=== PATIENT | male | born 1940 | race Caucasian/White ===

== ENCOUNTER 2017-02-07 14:02 | Emergency (ER) | payer OTHER ==
--- NOTE | 2017-02-07 15:39 | DIAGNOSTIC IMAGING REPORT ---
PROCEDURE: CT HEAD WITHOUT CONTRAST INDICATION: VERTIGO/DIZZINESS TECHNIQUE: Axial CT images were acquired through the head. Coronal and sagittal reformations were created. COMPARISON: None. FINDINGS: Moderate cerebral and cerebellar cortical atrophy. Moderate to marked scattered patchy hypodensity in the periventricular and subcortical white matter. A few small right caudate head lacunar infarcts and deep white matter tract locations bilaterally. No intracranial hemorrhage or extraaxial fluid collections. Ventricles are normal in the size for the degree of atrophy, normal shape and position. There is no mass, mass effect or midline shift. The cade-white matter differentiation is normal. There is no edema. Mild calcific atherosclerosis of the intracranial internal carotid arteries. Small right frontal soft tissue contusion without underlying foreign body or fracture. The paranasal sinuses and mastoid air cells are normally aerated. IMPRESSION: 1. No CT evidence of acute intracranial process. 2. Age related involutional changes and moderate to marked white matter changes of microvascular ischemic disease. 3. Findings discussed with Dr. Beckford at [address] scans at this facility use dose modulation, iterative reconstruction, and/or weight-based dosing when appropriate to reduce radiation dose to as low as reasonably achievable.
--- NOTE | 2017-02-07 15:40 | DIAGNOSTIC IMAGING REPORT ---
PROCEDURE: XR HIP 2VW W W/O AP PELVIS-RT INDICATION: TRAUMA/INJURY TECHNIQUE: AP view of the pelvis and hips with lateral view of the right hip. COMPARISON: None. FINDINGS: RIGHT HIP: Normal mineralization. No fracture. Normal bony alignment. Mild degenerative change at the hip joint including superior acetabular sclerosis and spurring. No unusual adjacent calcifications. PELVIS: Normal mineralization. Pelvic rings are intact. No fractures. Normal alignment. Mild degenerative change at the left hip joint. Moderate endplate sclerosis and disc height loss in the visible lower lumbar spine. The visible bowel gas pattern and pelvic soft tissues appear normal. IMPRESSION: 1. Intact right hip. 2. Mild bilateral degeneration in the hip joints and moderate disc endplate degeneration in the lumbar spine.
--- NOTE | 2017-02-07 19:00 | ED NURSING NOTES ---
Clinical Report - Nurses [facility] [place] [address] 02/07/2017 14:03 Patient: ELIZABETH LEAL JR TRIAGE Triage time 14:00 Feb 07 2017. Acuity: LEVEL 3. Chief Complaint: INJURY TO RIGHT KNEE. INJURY TO THE RIGHT HIP. Alert. JEANE COMA SCORE: Jeane Coma Scale: 15- eyes open spontaneously (4); best verbal response- oriented x 4 (5); best motor response- obeys commands (6). --14:31 Edgar Turcios R.N. 14:06 02/07/17. BP: 148/96. HR: 76. RR: 16. O2 saturation: 97% on room air. Temp: 98.4 F. Pain level now: 10. Additional comments: (R) Hip pain. --14:31 Edgar Turcios R.N. Weight: 86.1 kg stated. Height/Length: 72 inches Per Patient. BMI: 25.8. --14:06 Edgar Turcios R.N. Medications Aspirin Oral (Tablet Chewable 81 mg) 1 tablet, daily. Atenolol Oral uncerain, daily. Atorvastatin Calcium Oral. Losartan Potassium Oral. Triamterene-HCTZ Oral. --14:19 Edgar Turcios R.N. Medication/allergy information source: the patient. --14:31 Edgar Turcios R.N. Allergies No Known Drug Allergy. --14:19 Edgar Turcios R.N. History Arrived by EMS. Historian: patient. Accompanied by family. Primary physician (Dmitriy Jimenez [facility]). ( GLF yesterday with (R) Hip, (R) Knee Pain, and Bump to the (R) Forehead. Pt is having pain in the (R) Hip today while ambulating. The cause of his fall might have been due to dizzines and he also had trouble standing afterward. Denies LOC). This occurred yesterday. Occurred at home. Mechanism of injury: fell. He has had trouble walking. Treatment DIRECTOR ORACLE: None. PAST MEDICAL HX: Hypertension. Heart disease. Tetanus status: unknown. Immunizations: up-to-date and seasonal influenza: first dose. SOCIAL HX: Smoker- current status unknown. Alcohol use. (rarely has a cocktail). No drug use. No infectious disease exposure. ABUSE ASSESSMENT: No report of abuse. FALL RISK ASSESSMENT: Fall risk assessment completed. No fall risk identified. NUTRITIONAL RISK ASSESSMENT: The nutritional risk assessment revealed no deficiencies. FUNCTIONAL ASSESSMENT: Functional assessment: no impairments noted. LEARNING NEEDS ASSESSMENT: The learning needs assessment revealed no barriers. SKIN INTEGRITY ASSESSMENT: Skin integrity risk assessment completed. No skin integrity risk identified. --14:31 Edgar Turcios R.N. PROBLEMS: CAD. Rib Fracture. Hyperlipidemia. CVA - Cerebrovascular Accident. --14:17 Edgar Turcios R.N. ADDITIONAL SURGERIES: Appendectomy. CABG. Tonsillectomy. --14:17 Edgar Turcios R.N. Interventions ID band on patient. To treatment room. --14:31 Edgar Turcios R.N. PHYSICAL ASSESSMENT To room via stretcher. GENERAL / NEURO / PSYCH: Oriented X 4. Alert. EXTREMITIES: Limited ROM present in the right hip. Capillary refill is less than 2 seconds in the extremities. Extremity pulses are within normal limits. Pain with weight bearing. Right hip. Right knee. SKIN: Skin intact. Skin is warm and dry. --14:32 Edgar Turcios R.N. NURSING PROGRESS NOTES Patient gowned. Reassurance given to the patient. Patient identifiers checked. Call light placed in reach. Side rails up x 2. Bed placed in lowest position. Brakes of bed on. Patient ready for evaluation- chart flagged and ED physician notified. --14:33 Edgar Turcios R.N. 14:24 02/07/2017 Site #1 started via IV in the left antecubital space with an 20g angiocath, with aseptic technique and good blood return; one attempt. Blood drawn: rainbow set. Labeled in the presence of the patient and sent to the lab. Saline lock flushed with 10 mL saline. --14:34 Edgar Turcios R.N. 14:35 02/07/2017 Started bag #1 1000 mL IV Fluids IV NS (Saline); bolus of 250 mL over 15 minute(s) then at 250 mL/hr over 3 hour(s) via site #1 via IV pump. Allergies verified and confirmed 5 rights. IV patency established. IV site checked: no pain, redness, or swelling. IV flushed thoroughly pre- and post-medication administration. --14:35 Edgar Turcios R.N. 14:40 02/07/17. Patient transported to radiology and CT by stretcher with tech. --14:44 Edgar Turcios R.N. 14:40 02/07/2017 Acetaminophen (APAP) PO Tablets 1000 mg given. Allergies verified and confirmed 5 rights. --14:45 Edgar Turcios R.N. 15:07 02/07/17. Patient returned from radiology and CT by stretcher with tech. --15:09 Edgar Turcios R.N. 15:20. Patient ID band checked for patient name and birthdate: patient confirmed. Clean catch urine collected with return of yellow-colored clear urine; sample sent to lab for urinalysis and culture. Specimen labeled in the presence of the patient (pt voided approx 70cc urine into urinal in bed. UA sent to lab). --15:28 Lakisha Rowan R.N. EKG time: (1531). EKG was ordered, performed by a tech and shown to the ED physician. --15:33 Ricardo Martinez, ER Tech1 15:40 02/07/2017 Potassium Chloride (Potassium Chloride ER) PO Tablets 20 meq given. Allergies verified and confirmed 5 rights. --15:45 Edgar Turcios R.N. 16:15. ( Attempted to ambulate with patient in the pavon. Patient was able to stand at his bedside with assistance, and took a few small steps while using the IV pole for support. The patient appeared somewhat unstable.). --16:59 Ricardo Martinez, ER Tech1 18:10 02/07/2017 Hydrocodone-APAP (Hydrocodone-Acetaminophen) PO 5/325 mg Tablets 1 tab given. Allergies verified, confirmed 5 rights and sedative warning given to the patient. --18:25 Edgar Turcios R.N. 18:10 02/07/2017 Zofran (Ondansetron HCl) IVP 4 mg given over 2 minute(s) via site #1. Allergies verified and confirmed 5 rights. IV patency established. IV site checked: no pain, redness, or swelling. IV flushed thoroughly pre- and post-medication administration. IVP given by RN. --18:25 Edgar Turcios R.N. ( Patient attempted to ambulate with a walker, with assistance. He ambulated about 8 feet, then his "leg gave out" and he had to go down to his knees. It took two caregivers to get the patient back in to a wheelchair.). --18:32 Ricardo aMrtinez, ER Tech1 19:00 02/07/2017 IV Fluids IV NS Discontinued: bag #1 infused. Total amount infused: 1000 mL. IV patency established. IV site checked: no pain, redness, or swelling. IV flushed thoroughly. --19:42 Edgar Turcios R.N. 19:10 02/07/2017 Site #1 removed upon discharge. Catheter intact. Manual pressure and bandaid applied. --19:43 Edgar Turcios R.N. DISPOSITION / DISCHARGE Departure time: 1914. --19:38 Edgar Turcios R.N. 19:15 02/07/17. BP: 171/91. HR: 74. RR: 16. O2 saturation: 97%. Temp: 98.7 F (oral). Pain level now: 210. Additional comments: RLE pain. --19:39 Edgar Turcios R.N. 19:15. Condition at departure: improved. No learning barriers present. Discharge instructions provided and reviewed with the patient and family. Reviewed medication(s) (prescription given to daughter). Reviewed referral to family practice. Patient and family verbalized understanding. Written instructions provided in Faroese. The patient was discharged by the physician. He was discharged home and accompanied by family and daughter. He left the Emergency Department in a wheelchair and via private vehicle. Family member driving (daughter). --19:41 Edgar Turcios R.N. Locked/Released at 02/07/2017 19:43 by Edgar Turcios R.N.
--- NOTE | 2017-02-07 19:00 | ED CLINICAL REPORT ---
Clinical Report - Physicians/Mid Levels [facility] [address] [place] [address] 02/07/2017 14:03 Patient: ELIZABETH LEAL JR Time Seen: 14:09. Arrived- By ambulance. Historian- patient and EMS personnel. HISTORY OF PRESENT ILLNESS Chief Complaint: FALL. Location of injuries- head and right hip and right knee. Patient denies injury to neck. The injury occurred about 2 days ago. Fell and landed on the ground; became dizzy. Occurred at home. ( GLF yesterday with (R) Hip, (R) Knee Pain, and Bump to the (R) Forehead. Pt is having pain in the (R) Hip today while ambulating). The patient complains of moderate pain. The patient sustained a blow to the head. No neck pain, loss of consciousness or seizure. Not dazed. REVIEW OF SYSTEMS The patient complains of pain on weight bearing. No numbness, dizziness, chest pain, difficulty breathing or headache. No nausea, abdominal pain, laceration, fever or vomiting. He has had pre-existing constant weakness of the right leg (moderate), (pt has longstanding right lower extremity weakness from prior stroke - he walks with a cane and notes occasional exacerbations of this weakness. He states that there is nothing new or different today with this weakness). All systems otherwise negative, except as recorded above. PAST HISTORY Hypertension. Primary physician (Dmitriy Jimenez [facility] Problems: Prior falls (GLF's) Hyperlipidemia. CVA - Cerebrovascular Accident (chronic rt side weakness, uses a cane). Prior right rib fracture Surgeries: Appendectomy CABG. Tonsillectomy. No history of diabetes mellitus. Medications: Aspirin Oral (Tablet Chewable 81 mg) 1 tablet, daily. Atenolol Oral uncerain, daily. Atorvastatin Calcium Oral. Losartan Potassium Oral. Triamterene-HCTZ Oral. Allergies: No Known Drug Allergy. SOCIAL HISTORY Occasional alcohol use. No drug use. Is a local resident. ADDITIONAL NOTES The nursing notes have been reviewed. PHYSICAL EXAM Vital Signs: 02/07/2017 14:06 BP: 148/96. HR: 76. RR: 16. O2 saturation: 97%. Temp: 98.4 F. Pain level now: 01/25. Appearance: Alert. Oriented X3. Patient in mild distress. Head: No Dotson's sign or raccoon eyes. Forehead: moderate tenderness, mild swelling and small ecchymosis of the upper right side of the forehead. No laceration, puncture wound, foreign body or deformity. Eyes: EOM intact. ENT: No dental injury. Pharynx normal. Neck: Painless ROM. Non-tender. CVS: Pulses normal. Respiratory: Breath sounds normal. Chest nontender. Abdomen: No visible injury. Soft and nontender. No mass. Back: No tenderness. ROM normal. Skin: Skin warm and dry. Normal skin color. Normal skin turgor. (forehead abrasion). Extremities: Normal inspection. Pelvis stable. Pelvis. Neurovascular intact distally. No tenderness. No swelling. No ecchymosis. Right hip: mild tenderness located in the lateral aspect of the hip. Neurovascular intact distally. No erythema, swelling, laceration, abrasion or ecchymosis. No puncture wound, foreign body or deformity. No limitation in ROM. The right leg is not shortened, externally rotated, internally rotated, flexed or adducted. The right leg is not abducted. Right knee. No tenderness or swelling. Neuro: [place] Coma Scale: 15- eyes open spontaneously (4); best verbal response- oriented x 3 (5); best motor response- obeys commands (6). Oriented X 3. No motor deficit. No sensory deficit. LABS, X-RAYS, AND EKG EKG: EKG time: (15:31). Narrow-complex bradycardia (ventricular rate 50). Sinus bradycardia. Normal P waves. Normal QRS complex. Normal axis. Non-specific ST segment / T wave abnormalities. The study has been interpreted contemporaneously by me. The EKG appears to be a good tracing. Rt Hip X-ray: No fracture. Normal alignment. No bony lesion or air in the soft tissue. Soft tissues normal. Joint spaces normal. Views: 2 view hip series. Technique: good. The X-rays were interpreted contemporaneously by me. The X-rays were discussed with the radiologist (Dr Payton telephonically). CT Head: White matter disease is present. No acute changes. No bony abnormalities, no hemorrhage, no intracranial mass and no midline shift. There is atrophy is present. Head CT performed without contrast. The study was independently viewed by me, interpreted by the radiologist and discussed with the radiologist. Laboratory Tests: UA-Culture if indicated: (MAXX: 02/07/2017 15:18) ( [facility] 02/07/2017 15:54) Final results Test Result Flag Units (Reference) URINE COLOR YELLOW URINE APPEARANCE CLEAR URINE GLUCOSE NEGATIVE (NEGATIVE) URINE BILIRUBIN NEGATIVE (NEGATIVE) URINE KETONE 1+ (NEGATIVE) URINE SPECIFIC GRAVITY 1.020 (1.010-1.030) URINE PH 7.0 (5.0-8.0) URINE PROTEIN 1+ (NEGATIVE) URINE UROBILINOGEN 0.2 EU/dL (0.2-1.0) URINE NITRITE NEGATIVE (NEGATIVE) URINE BLOOD 3+ (NEGATIVE) URINE LEUK ESTERASE NEGATIVE (NEGATIVE) URINE RBC 0-1 rbc/hpf (0-1) URINE WBC 0-1 wbc/hpf (0-1) URINE EPITHELIAL CELLS RARE EPI/hpf (0-5) URINE BACTERIA TRACE (<1+) (NONE SEEN) URINE COMMENT CULT NOT INDICATED URINE CULTURES ARE SET-UP BASED ON THE FOLLOWING CRITERIA:POSITIVE NITRITEPOSITIVE LEUKOCYTE ESTERASEGREATER THAN 10 WHITE BLOOD CELLSMODERATE (2+) OR GREATER BACTERIA CBC w Diff: (MAXX: 02/07/2017 14:25) ( [facility] 02/07/2017 14:48) Final results Test Result Flag Units (Reference) WHITE BLOOD COUNT 10.1 K/uL (4.5-11.5) RED BLOOD COUNT 5.15 M/uL (4.50-5.90) HEMOGLOBIN 15.1 gm/dL (13.5-17.5) HEMATOCRIT 44.1 % (41.0-53.0) MEAN CELL VOLUME 86 fL (80-100) MEAN CORPUSCULAR HGB 29 pg (26-34) MEAN CORPUSCULAR HGB CONC 34 g/dL (31-37) RED CELL DISTRIBUTION WIDTH 14.6 % (11.6-14.8) PLATELET COUNT 202 K/uL (150-400) NEUTROPHIL % 82.3 H % (50-75) LYMPH % 10.8 L % (25-40) MONO % 6.3 % (3-14) EOSINOPHIL % 0.3 % (0-4) BASOPHIL % 0.3 % (0-2) PT with INR: (MAXX: 02/07/2017 14:25) ( [facility] 02/07/2017 14:53) Final results Test Result Flag Units (Reference) INR 1.0 (0.8-1.2) Low Intensity Therapy: INR 1.5-2.0 PT range 18.5-23.1Mod.Intensity Therapy: INR 2.0-3.0 PT range 23.1-31.5High Intensity Therapy: INR 2.5-3.5 PT range 27.4-35.5High Intensity Therapy 2: INR 3.0-4.0 PT range 31.5-39.3 APTT 29 SECONDS (24-34) BNP: (MAXX: 02/07/2017 14:25) ( [facility] 02/07/2017 15:11) Final results Test Result Flag Units (Reference) B-TYPE NATRIURETIC PEPTIDE 269 H pg/ml (5-100) CHEM 13 PANEL: (MAXX: 02/07/2017 14:25) ( [facility] 02/07/2017 16:00) IP Test Result Flag Units (Reference) GLUCOSE 108 mg/dL (70-110) BUN 20 H mg/dL (7-18) CREATININE 1.3 mg/dL (0.6-1.3) Estimated GFR 56.60 mL/min Estimated GFR- >60 mL/min Note: Persistent reduction over 3 months in eGFR<60 mL/min/1.73 m2 defines CKD. Patients with eGFR values>=60 mL/min/1.73 m2 may also have CKD if evidence ofpersistent proteinuria. Additional information may be foundat www.kidney.org. SODIUM 146 H mmol/L (136-145) POTASSIUM 3.0 L mmol/L (3.5-5.1) CHLORIDE 106 mmol/L (98-107) CARBON DIOXIDE 29 mmol/L (21-32) CALCIUM 9.6 mg/dL (8.5-10.1) TOTAL PROTEIN 7.2 g/dL (6.4-8.2) ALBUMIN 4.4 g/dL (3.3-5.0) BILIRUBIN, TOTAL 1.7 H mg/dL (0.0-1.0) ALKALINE PHOSPHATASE 93 U/L (46-116) AST (SGOT) 59 H U/L (15-37) ALT (SGPT) 28 U/L (12-78) MAGNESIUM 2.0 mg/dL (1.8-2.4) TROPONIN I 0.13 ng/mL (0.00-1.5) TROPONIN REFERENCE RANGE:<0.1 NEGATIVE0.1-1.5 INDETERMINANT>1.5 POSITIVE CPK 2051 H U/L (24-260) . Pulse Oximetry: 02/07/2017 14:06 O2 saturation: 97%. (FIO2 - room air). Interpretation: normal. PROGRESS AND PROCEDURES Course of Care: Acetaminophen 1000 mg PO given. Hydrocodone/APAP 5 mg PO given. Normal Saline 500 mL IVPB given. Potassium Chloride 20 meq PO given. Zofran 4 mg IVP given. Pt with chronic right lower extremity weakness for which he uses a cane and now with superimposed, intermittent vertigo (CT neg for acute process, but may need MRI in the future if not improving - current symptoms are >24 hours, no vertigo now). Pt ambulated with assistance in the ED with minimal pain, but later stated the hip began hurting again. No fracture on x-ray (but if not improving, may need repeat x-ray, MRI, CT or bone scan to reassess). 18:22 02/07/17. Pt just ambulated with walker in the ED - mild pain in "foot and ankle". Was able to walk down pavon then he reports he had increased weakness in the RLE and went to his knees upon entering his room - no injury - he required assistance to move to the bed 19:20 02/07/17. We have helped arrange [facility] transport tomorrow for his doctor's appointment After long discussion with patient and daughter about possible dispositions, pt and daughter would like to go home and obtain a wheelchair and attempt to place pt into assisted living tomorrow (now in wheelchair accessible half-way, but without assistance). No sings of acute CVA, but, per patient symptoms began about 48 hours ago - no TPA indications or other indication for admission. Discussed treatment options including adding Plavix, but, with his history of frequent falls in the past, the risks of serious bleeding may outweigh the benefits. I will increase ASA to 325mg po qd. Patient and family counseled in person regarding the patient's test results, diagnosis and need for additional testing and follow-up. Old ED records reviewed. Disposition: Discharged. Condition: stable and improved. CLINICAL IMPRESSION Acute vertigo of unknown cause. Single contusion with abrasion to the forehead and right hip. Hypokalemia; hyponatremia; abnormal serum liver function test. Essential hypertension. Hypokalemia Fall. Prior CVA (possible exacerbation in same distribution) with chronic right lower extremity weakness and prior falls. INSTRUCTIONS Apply ice. (Please only use a wheelchair and ambulate only with a walker and ambulate (walk) only with assistance). Warnings: GENERAL WARNINGS: Return or contact your physician immediately if your condition worsens or changes unexpectedly, if not improving as expected, or if other problems arise. Your Current Medications: CONTINUE TAKING THE FOLLOWING MEDICATIONS: Aspirin Oral : Tablet Chewable 81 mg, 1 tablet daily. Atenolol Oral : uncerain daily. Atorvastatin Calcium Oral. Losartan Potassium Oral. Triamterene-HCTZ Oral. Prescription Medications: Meclizine 25 mg: Take 1 tablet orally every 8 hours as needed for dizziness. Dispense thirty (30). No refills. OTC Medications: Aspirin 325 mg (available over the counter): take 1 orally every 24 hours. Dispense thirty (30). No refills. Follow-up: Follow up with your doctor tomorrow. Screening today revealed the patient's blood pressure to be in the hypertensive range. The patient should follow up with a primary care provider for blood pressure management. (Electronically signed by Ricardo Beckford DO 02/07/2017 20:32)
--- NOTE | 2017-02-07 19:00 | ED ORDER SUMMARY ---
..... Patient: ELIZABETH LEAL JR OrderSheet [facility] VisitID: [id number] [address] [place] [address] 77y, M Registration Date/Time: 02/07/2017 ORDER SHEET Weight: 86.1 kg (stated) Allergies: No Known Drug Allergy GENERAL ORDERS: CT Head wo Cont (noted vertigo, fell struck head, "taking thinners") Urgent (14:28 02/07/2017 PHutchinson DO) (Ack 14:32 PWeiler ER Tech1) (15:09 Ari) Adoption Counselor (Continuous) (14:02/07/2017 PHutchinson DO) (14:45 JRomanelli R.N.) UA-Culture if indicated Urgent (14:02/07/2017 PHutchinson DO) (Ack 14:32 PWeiler ER Tech1) (15:27 DDean R.N.) Cardiac Panel Stat (14:02/07/2017 PHutchinson DO) (Ack 14:32 PWeiler ER Tech1) (14:39 DDean R.N.) BNP Urgent (14:02/07/2017 PHutchinson DO) (Ack 14:32 PWeiler ER Tech1) (14:39 DDean R.N.) PT with INR Urgent (14:02/07/2017 PHutchinson DO) (Ack 14:32 PWeiler ER Tech1) (14:39 DDean R.N.) PTT Urgent (14:02/07/2017 PHutchinson DO) (Ack 14:32 PWeiler ER Tech1) (14:39 DDean R.N.) Vitals (14:02/07/2017 PHutchinson DO) (14:45 JRomanelli R.N.) Pulse oximeter (14:02/07/2017 PHutchinson DO) (14:45 JRomanelli R.N.) Hip 2V Right w AP Pelvis Urgent (14:31 02/07/2017 PHutchinson DO) (Ack 14:32 PWeiler ER Tech1) (15:09 Ari) Old Records (old ECG please) (15:23 02/07/2017 [facility]) (Ack 15:44 PWeiler ER Tech1) (15:46 PWeiler ER Tech1) EKG - ER Stat (15:23 02/07/2017 [facility]) (15:33 Joelli R.N.) (15:33 PWeiler ER Tech1) - (attempt to ambulate patient) (15:51 02/07/2017 [facility]) (Ack 16:12 PWeiler ER Tech1) (16:57 PWeiler ER Tech1) MEDICATION ORDERS: Acetaminophen PO 1,000 mg (NOW) (14:29 02/07/2017 [facility]) (14:45 Hardy R.N.) Potassium Chloride PO 20 meq (NOW) (15:25 02/07/2017 [facility]) (15:45 Hardy R.N.) Hydrocodone-APAP PO 5/325 mg (NOW, HIGH ALERT MEDICATION) (17:21 02/07/2017 [facility]) (18:25 Hardy R.N.) IV FLUIDS: IV NS : initial bolus 250 mL (1000 mL/hr), then 250 mL/hr for X2 (NOW) (14:29 02/07/2017 [facility]) (14:35 Hardy R.N.) Zofran IV 4 mg (NOW) (17:22 02/07/2017 [facility]) (18:25 Hardy R.N.) ORDER SHEET NOTES: [Electronically signed by Edgar Turcios R.N. (19:43 02/07/2017)] [Electronically signed by Ricardo Beckford DO (20:32 02/07/2017)] [Electronically locked/signed by Edgar Turcios R.N. (19:43 02/07/2017)]
--- NOTE | 2017-02-07 19:00 | ED ORDER SUMMARY ---
..... Patient: ELIZABETH LEAL JR OrderSheet [facility] VisitID: [id number] [address] [place] [address] 77y, M Registration Date/Time: 02/07/2017 ORDER SHEET Weight: 86.1 kg (stated) Allergies: No Known Drug Allergy GENERAL ORDERS: CT Head wo Cont (noted vertigo, fell struck head, "taking thinners") Urgent (14:28 02/07/2017 PHutchinson DO) (Ack 14:32 PWeiler ER Tech1) (15:09 Ari) Bug Trimmer (Continuous) (14:02/07/2017 PHutchinson DO) (14:45 JRomanelli R.N.) UA-Culture if indicated Urgent (14:02/07/2017 PHutchinson DO) (Ack 14:32 PWeiler ER Tech1) (15:27 DDean R.N.) Cardiac Panel Stat (14:02/07/2017 PHutchinson DO) (Ack 14:32 PWeiler ER Tech1) (14:39 DDean R.N.) BNP Urgent (14:02/07/2017 PHutchinson DO) (Ack 14:32 PWeiler ER Tech1) (14:39 DDean R.N.) PT with INR Urgent (14:02/07/2017 PHutchinson DO) (Ack 14:32 PWeiler ER Tech1) (14:39 DDean R.N.) PTT Urgent (14:02/07/2017 PHutchinson DO) (Ack 14:32 PWeiler ER Tech1) (14:39 DDean R.N.) Vitals (14:02/07/2017 PHutchinson DO) (14:45 JRomanelli R.N.) Pulse oximeter (14:02/07/2017 PHutchinson DO) (14:45 JRomanelli R.N.) Hip 2V Right w AP Pelvis Urgent (14:31 02/07/2017 PHutchinson DO) (Ack 14:32 PWeiler ER Tech1) (15:09 Ari) Old Records (old ECG please) (15:23 02/07/2017 [facility]) (Ack 15:44 PWeiler ER Tech1) (15:46 PWeiler ER Tech1) EKG - ER Stat (15:23 02/07/2017 [facility]) (15:33 Joelli R.N.) (15:33 PWeiler ER Tech1) - (attempt to ambulate patient) (15:51 02/07/2017 [facility]) (Ack 16:12 PWeiler ER Tech1) (16:57 PWeiler ER Tech1) MEDICATION ORDERS: Acetaminophen PO 1,000 mg (NOW) (14:29 02/07/2017 [facility]) (14:45 Hardy R.N.) Potassium Chloride PO 20 meq (NOW) (15:25 02/07/2017 [facility]) (15:45 Hardy R.N.) Hydrocodone-APAP PO 5/325 mg (NOW, HIGH ALERT MEDICATION) (17:21 02/07/2017 [facility]) (18:25 Hardy R.N.) IV FLUIDS: IV NS : initial bolus 250 mL (1000 mL/hr), then 250 mL/hr for X2 (NOW) (14:29 02/07/2017 [facility]) (14:35 Hardy R.N.) Zofran IV 4 mg (NOW) (17:22 02/07/2017 [facility]) (18:25 Hardy R.N.) ORDER SHEET NOTES: [Electronically signed by Edgar Turcios R.N. (19:43 02/07/2017)] [Electronically signed by Ricardo Beckford DO (20:32 02/07/2017)] [Electronically locked/signed by Edgar Turcios R.N. (19:43 02/07/2017)]
--- NOTE | 2017-02-07 20:32 | ED DISCHARGE INSTRUCTIONS ---
Patient: ELIZABETH LEAL JR General Instructions [facility] VisitID: [id number] [place] [address] 77y, M Registration Date/Time: 02/07/2017 Acute vertigo of unknown cause. Single contusion with abrasion to the forehead and right hip. Hypokalemia; hyponatremia; abnormal serum liver function test. Essential hypertension. Hypokalemia Fall. INSTRUCTIONS Apply ice. (Please only use a wheelchair and ambulate only with a walker and ambulate (walk) only with assistance). Warnings: GENERAL WARNINGS: Return or contact your physician immediately if your condition worsens or changes unexpectedly, if not improving as expected, or if other problems arise. Your Current Medications: CONTINUE TAKING THE FOLLOWING MEDICATIONS: Aspirin Oral : Tablet Chewable 81 mg, 1 tablet daily. Atenolol Oral : uncerain daily. Atorvastatin Calcium Oral. Losartan Potassium Oral. Triamterene-HCTZ Oral. Prescription Medications: Meclizine 25 mg: Take 1 tablet orally every 8 hours as needed for dizziness. Dispense thirty (30). No refills. OTC Medications: Aspirin 325 mg (available over the counter): take 1 orally every 24 hours. Dispense thirty (30). No refills. Follow-up: Follow up with your doctor tomorrow. Screening today revealed the patient's blood pressure to be in the hypertensive range. The patient should follow up with a primary care provider for blood pressure management. ADDITIONAL INFORMATION Facial Contusion (No Wake-Up) A facial contusion is a bruise with swelling and sometimes bleeding under the skin. The swelling should start to go down within two days. Although there may be no signs of a serious injury at this time, symptoms may appear later which could be a sign of a more serious problem. Therefore, watch for the warning signs below. Home care The following guidelines will help you care for your injury at home: If you have swelling of the face, apply an ice pack (ice cubes in a plastic bag, wrapped in a towel) for 20 minutes every 12 hours until the swelling starts to go down. If you have scrapes or cuts on your face, clean them daily with soap and water. Apply an antibiotic ointment or cream for the first few days to prevent infection. You may use acetaminophen or ibuprofen to control pain, unless another pain medicine was prescribed.If you have chronic liver or kidney disease or ever had a stomach ulcer or GI bleeding, talk with your doctor before using these medicines. Do not use ibuprofen in children under six months of age. For the next 24 hours: Do not take alcohol, sedatives or medicines that make you sleepy. Do not drive or operate machinery. Avoid strenuous activities. No lifting or straining. If you have had any symptoms of aconcussiontoday (nausea, vomiting, dizziness, confusion, headache, memory loss or if you were knocked out), do not return to sports or any activity that could result in another head injury until all symptoms are gone and you have been cleared by your doctor. A second head injury before fully recovering from the first one can lead to serious brain injury. Follow-up care Follow up with your doctor in one week or as directed. Note: Any X-rays or CT scans taken will be reviewed by a radiologist. You will be notified of any new findings that may affect your care. When to seek medical care Get prompt medical attention if any of the following occur: Repeated vomiting Severe or worsening headache or dizziness Unusual drowsiness, or unable to awaken as usual Confusion or change in behavior or speech, memory loss, blurred vision Convulsion (seizure) Increasing scalp or face swelling Redness, warmth or pus from the swollen area Fluid drainage or bleeding from the nose or ears Fever of 100.4F (38C) or higher, or as directed by your health care provider Increasing jaw pain with chewing or increasing pain in the sinuses Nose looks crooked or cannot breathe through your nose after swelling goes down Hip Contusion You have a contusion of the hip. This is a bruise with swelling and some bleeding under the skin. There are no fracture (broken bone) seen on the x-ray. This injury takes a few days to a few weeks to heal. Home Care If walking causes pain, use crutches or a walker until you can walk without pain. These items can be rented at most pharmacies and orthopedic supply stores. Apply an ice pack (ice cubes in a plastic bag, wrapped in a towel) over the injured area for 20 minutes every 1-2 hours the firstday. You should continue with ice packs 3-4 times a day for the next two days. Continue the use of ice packs for relief of pain and swelling as needed. You may use acetaminophen (Tylenol) or ibuprofen (Motrin, Advil) to control pain, unless another pain medicine was prescribed. [NOTE: If you have chronic liver or kidney disease or ever had a stomach ulcer or GI bleeding, talk with your doctor before using these medicines.] If you are not able to get to the bathroom easily or take care of your meal preparation, home health care may be available to provide in-home nursing services. Check with your doctor, the hospital's social service department or through private nursing agencies to see if your insurance will cover this kind of care. Follow Up Follow up with your doctor or as advised by our staff if your symptoms do not begin to improve after one week. A repeat x-ray or a CT-scan may be needed to check again for a fracture. [NOTE: If X-rays were taken, they will be reviewed by a radiologist. You will be notified of any new findings that may affect your care.] Get Prompt Medical Attention Get prompt medical attention if any of the following occur: Increased swelling or increased bruising Pain becomes worse Decreased ability to bear weight on the injured side Swelling or pain below your knee Chest pain or shortness of breath High Blood Pressure --Established High Blood Pressure (Hypertension) is a chronic disease. The cause is unknown in most cases. It can usually be controlled with lifestyle changes and/or medicines. Symptoms of high blood pressure may include headache, dizziness, visual changes, chest pain and shortness of breath. Sometimes it causes no symptoms at all. However, even if there are no symptoms, untreated high blood pressure increases the risk of heart attack, also known as acute myocardial infarction, or AMI, and stroke. It is a serious health risk and should not be ignored. A normal blood pressure is 120/80 or less. The first (top) number is the "systolic" pressure. The second (bottom) number is the "diastolic" pressure. Hypertension exists when either the top number is 140 or higher, OR the bottom number is 90 or higher on repeated measurements. Home Care: All patients with high blood pressure should do the following to lower their pressure. If you are on medicines, then these methods may reduce or eliminate your need for medicines in the future. Begin a weight loss program if you are overweight. Reduce your salt intake. Avoid high salt foods (olives, pickles, smoked meats, salted potato chips, etc.). Do not add salt to your food at the table. Use only small amounts of salt when cooking. Begin an exercise program. Discuss with your doctor what type of exercise program would be best for you. It doesn't have to be difficult. Even brisk walking for 20 minutes three times a week is a good form of exercise. Avoid medicines which contain heart stimulants. This includes many cold and sinus decongestant pills and sprays as well as diet pills. Check the warnings about hypertension on the label. Stimulants such as amphetamine or cocaine could be lethal for someone with hypertension. Never take these. Limit your caffeine intake or switch to caffeine-free products. Stop smoking. If you are a long-time smoker, this can be hard. Enroll in a stop-smoking program to improve your chance of success. Learning how to handle stress better is an important part of any program to lower blood pressure. Learn about relaxation methods such as meditation, yoga or biofeedback. If medicines were prescribed, take them exactly as directed. Missing doses may cause your blood pressure get out of control. Consider buying an automatic blood pressure machine (available at most pharmacies). Use this to monitor your blood pressure at home and report the results to your doctor. Follow Up: Regular visits to your own physician for blood pressure checks and medicine adjustment is an important part of your care. Make a follow-up appointment as directed by our staff. Get Prompt Medical Attention if any of the following occur: Chest pain or shortness of breath Severe headache Throbbing or rushing sound in the ears Nosebleed Sudden severe abdominal pain Extreme drowsiness, confusion or fainting Dizziness or vertigo (dizziness with spinning sensation) Weakness of an arm or leg or one side of the face Difficulty with speech or vision Hypokalemia Hypokalemia means a low level of potassium in the blood. This most often occurs in patients who take diuretics (water pills). It can also occur due to severe vomiting or diarrhea. A mild case usually causes no symptoms. It is only found with blood testing. More severe potassium loss causes generalized weakness, muscle or abdominal cramping, heart palpitations (rapid or irregular heartbeats) and low blood pressure. Home Care: 1) Take any potassium supplements prescribed. 2) Eat foods rich in potassium. The highest amount is found in artichoke, baked potatoes, spinach, cantaloupe, honeydew melon, cod, halibut, salmon, and scallops. White, red, or sanchez beans are also very good sources. A modest amount is found in orange juice, bananas, carrots, and tomato juice. 3) Certain types of diuretics (water pills), such as Lasix (furosemide), require that you take potassium supplements for as long as you take the diuretic pills. If you are taking a diuretic, discuss the need for potassium supplements with your doctor. Follow Up with your doctor for a repeat blood test within the next week or as advised by our staff. Get Prompt Medical Attention if any of the following occur: -- Increased weakness -- Feeling dizzy -- Irregular heartbeat, extra beats or very fast heart rate -- Fainting spell Vertigo [Unknown Cause] The "inner ear" is located behind the middle ear. It is part of the balance center of your body. Disease of the inner ear causes vertigo -- a false feeling of motion. It feels as if you or the room is spinning. A vertigo attack may cause sudden nausea, vomiting and heavy sweating. Severe vertigo causes a loss of balance and can cause you to fall. During vertigo, small head movements and changes in body position will often make the symptoms worse. The causes of vertigo include: Inflammation of the inner ear Disease of the nerves to the inner ear Movement of calcium particles in the inner ear Poor blood flow to the balance centers of the brain An episode of vertigo may last seconds, minutes or hours. Once you are over the first episode, it may never return. However, sometimes symptoms may recur off and on over several weeks or longer, depending on the cause. There may be ringing in the ears or hearing loss, which may be temporary or permanent. Home Care: If symptoms are severe, rest quietly in bed. Change positions very slowly. There is usually one position that will feel best, such as lying on one side or lying on your back with your head slightly raised on pillows. Do not drive or work with dangerous machinery for one week after symptoms go away, in case the symptoms suddenly return. Take medicine as prescribed to relieve your symptoms. Unless another medicine was prescribed for nausea, vomiting and vertigo, you may use [id number] motion sickness pills, such as meclizine (Bonine, Bonamine, Antivert) or dimenhydrinate (Dramamine). Follow Up with your doctor or as directed by our staff. Tell the doctor if your ears keep ringing, or if your hearing does not return to normal. Get Prompt Medical Attention if any of the following occur: Vertigo gets worse and is not controlled by medicine prescribed Repeated vomiting not relieved by medicine prescribed Increased weakness or fainting Severe headache or unusually drowsy or confused Weakness of an arm or leg or one side of the face Difficulty with speech or vision Meclizine Hydrochloride Oral tablet What is this medicine? MECLIZINE (MEK rc stephens) is an antihistamine. It is used to prevent nausea, vomiting, or dizziness caused by motion sickness. It is also used to prevent and treat vertigo (extreme dizziness or a feeling that you or your surroundings are tilting or spinning around). How should I use this medicine? Take this medicine by mouth with a glass of water. Follow the directions on the prescription label. If you are using this medicine to prevent motion sickness, take the dose at least 1 hour before travel. If it upsets your stomach, take it with food or milk. Take your doses at regular intervals. Do not take your medicine more often than directed. Talk to your moth proofer regarding the use of this medicine in children. Special care may be needed. What side effects may I notice from receiving this medicine? Side effects that you should report to your doctor or health patient care specialist as soon as possible: fainting spells fast or irregular heartbeat Side effects that usually do not require medical attention (report to your doctor or health patient care specialist if they continue or are bothersome): constipation difficulty passing urine difficulty sleeping headache stomach upset What may interact with this medicine? barbiturate medicines for inducing sleep or treating seizures digoxin medicines for anxiety or sleeping problems, like alprazolam, diazepam or temazepam medicines for hay fever and other allergies medicines for mental depression medicines for movement abnormalities as in Parkinson's disease, or for stomach problems medicines for pain medicines that relax muscles What if I miss a dose? If you miss a dose, take it as soon as you can. If it is almost time for your next dose, take only that dose. Do not take double or extra doses. Where should I keep my medicine? Keep out of the reach of children. Store at room temperature between 15 and 30 degrees C (59 and 86 degrees F). Keep container tightly closed. Throw away any unused medicine after the expiration date. What should I tell my health care provider before I take this medicine? They need to know if you have any of these conditions: asthma glaucoma prostate trouble stomach problems urinary problems an unusual or allergic reaction to meclizine, other medicines, foods, dyes, or preservatives or trying to get breast-feeding What should I watch for while using this medicine? If you are taking this medicine on a regular schedule, visit your doctor or health patient care specialist for regular checks on your progress. You may get dizzy, drowsy or have blurred vision. Do not drive, use machinery, or do anything that needs mental alertness until you know how this medicine affects you. Do not stand or sit up quickly, especially if you are an older patient. This reduces the risk of dizzy or fainting spells. Alcohol can increase possible dizziness. Avoid alcoholic drinks. Your mouth may get dry. Chewing sugarless gum or sucking hard candy, and drinking plenty of water may help. Contact your doctor if the problem does not go away or is severe. This medicine may cause dry eyes and blurred vision. If you wear contact lenses you may feel some discomfort. Lubricating drops may help. See your eye doctor if the problem does not go away or is severe. Aspirin Oral tablet What is this medicine? ASPIRIN ( pir in) is a pain reliever. It is used to treat mild pain and fever. This medicine is also used as directed by a doctor to prevent and to treat heart attacks, to prevent strokes, and to treat arthritis or inflammation. How should I use this medicine? Take this medicine by mouth with a glass of water. Follow the directions on the package or prescription label. You can take this medicine with or without food. If it upsets your stomach, take it with food. Do not take your medicine more often than directed. Talk to your moth proofer regarding the use of this medicine in children. While this drug may be prescribed for children as young as 12 years of age for selected conditions, precautions do apply. Children and teenagers should not use this medicine to treat chicken pox or flu symptoms unless directed by a doctor. Patients over 65 years old may have a stronger reaction and need a smaller dose. What side effects may I notice from receiving this medicine? Side effects that you should report to your doctor or health patient care specialist as soon as possible: allergic reactions like skin rash, itching or hives, swelling of the face, lips, or tongue breathing problems changes in hearing, ringing in the ears confusion general ill feeling or flu-like symptoms pain on swallowing redness, blistering, peeling or loosening of the skin, including inside the mouth or nose signs and symptoms of bleeding such as bloody or black, tarry stools; red or dark-brown urine; spitting up blood or brown material that looks like coffee grounds; red spots on the skin; unusual bruising or bleeding from the eye, gums, or nose trouble passing urine or change in the amount of urine unusually weak or tired yellowing of the eyes or skin Side effects that usually do not require medical attention (report to your doctor or health patient care specialist if they continue or are bothersome): diarrhea or constipation nausea, vomiting stomach gas, heartburn What may interact with this medicine? Do not take this medicine with any of the following medications: cidofovir ketorolac probenecid This medicine may also interact with the following medications: alcohol alendronate bismuth subsalicylate flavocoxid herbal supplements like feverfew, garlic, nan, ginkgo biloba, horse chestnut medicines for diabetes or glaucoma like acetazolamide, methazolamide medicines for gout medicines that treat or prevent blood clots like enoxaparin, heparin, ticlopidine, warfarin other aspirin and aspirin-like medicines NSAIDs, medicines for pain and inflammation, like ibuprofen or naproxen pemetrexed sulfinpyrazone varicella live vaccine What if I miss a dose? If you are taking this medicine on a regular schedule and miss a dose, take it as soon as you can. If it is almost time for your next dose, take only that dose. Do not take double or extra doses. Where should I keep my medicine? Keep out of the reach of children. Store at room temperature between 15 and 30 degrees C (59 and 86 degrees F). Protect from heat and moisture. Do not use this medicine if it has a strong vinegar smell. Throw away any unused medicine after the expiration date. What should I tell my health care provider before I take this medicine? They need to know if you have any of these conditions: anemia asthma bleeding problems child with chickenpox, the flu, or other viral infection diabetes gout if you frequently drink alcohol containing drinks kidney disease liver disease low level of vitamin K lupus smoke tobacco stomach ulcers or other problems an unusual or allergic reaction to aspirin, tartrazine dye, other medicines, dyes, or preservatives or trying to get breast-feeding What should I watch for while using this medicine? If you are treating yourself for pain, tell your doctor or health patient care specialist if the pain lasts more than 10 days, if it gets worse, or if there is a new or different kind of pain. Tell your doctor if you see redness or swelling. Also, check with your doctor if you have a fever that lasts for more than 3 days. Only take this medicine to prevent heart attacks or blood clotting if prescribed by your doctor or health patient care specialist. Do not take aspirin or aspirin-like medicines with this medicine. Too much aspirin can be dangerous. Always read the labels carefully. This medicine can irritate your stomach or cause bleeding problems. Do not smoke cigarettes or drink alcohol while taking this medicine. Do not lie down for 30 minutes after taking this medicine to prevent irritation to your throat. If you are scheduled for any medical or dental procedure, tell your healthcare provider that you are taking this medicine. You may need to stop taking this medicine before the procedure. You have been given the following additional information: Facial Contusion, No Wakeup Hip Contusion Hypertension, Established Hypokalemia Vertigo, Unspecified Meclizine Hydrochloride Oral tablet Aspirin Oral tablet (Electronically signed by Ricardo Beckford DO 02/07/2017 20:32)
--- NOTE | 2017-02-07 20:33 | ED MAR SUMMARY ---
..... Medication Administration Record [facility] [address] [place] [address] Patient: ELIZABETH ELAL Visit ID: [id number] 77y, M Weight: 86.1 kg Height/Length: 72 in BMI: 25.8 ALLERGIES: No Known Drug Allergy Start 14:35 02/07/2017 Edgar Turcios R.N., Stop 19:00 02/07/2017 Edgar Turcios R.N. Medication Administered: IV NS (SALINE), Dose: IV Fluids over 3 hour(s), Rate: 250 mL/hr, Bolus: 250 mL over 15 minute(s), Dispensed: 1000 mL bag, Site: #1 left AC. Medication Ordered: IV NS : initial bolus 250 mL (1000 mL/hr), then 250 mL/hr for X2 (NOW). Given 14:40 02/07/2017 Edgar Turcios R.N. Medication Administered: ACETAMINOPHEN [PO] (APAP), Dose: 1000 mg Tablets PO. Medication Ordered: Acetaminophen PO 1,000 mg (NOW). Given 15:40 02/07/2017 Edgar Turcios R.N. Medication Administered: POTASSIUM CHLORIDE [PO] (POTASSIUM CHLORIDE ER), Dose: 20 meq Tablets PO. Medication Ordered: Potassium Chloride PO 20 meq (NOW). Given 18:10 02/07/2017 Edgar Turcios R.N. Medication Administered: HYDROCODONE-APAP [PO] (HYDROCODONE-ACETAMINOPHEN), Dose: 1 tab 5/325 mg Tablets PO. Medication Ordered: Hydrocodone-APAP PO 5/325 mg (NOW, HIGH ALERT MEDICATION). Given 18:10 02/07/2017 Edgar Turcios R.N. Medication Administered: ZOFRAN [IVP] (ONDANSETRON HCL), Dose: 4 mg IVP over 2 minute(s), Site: #1 left AC. Medication Ordered: Zofran IV 4 mg (NOW).
--- NOTE | 2017-02-07 20:33 | ED MED RECONCILIATION SUMMARY ---
Patient: ELIZABETH LEAL Medication Reconciliation Report [facility] VisitID: [id number] [address] [place] [address] 77y, M Registration Date/Time: 02/07/2017 Weight: 86.1 kg Height/Length: 72 in. BMI: 25.8 ALLERGIES: No Known Drug Allergy The patient's Home Medications are listed below: CONTINUE TAKING THE FOLLOWING MEDICATIONS: Aspirin Oral (81 mg) 1 tablet, daily Atenolol Oral uncerain, daily Atorvastatin Calcium Oral Losartan Potassium Oral Triamterene-HCTZ Oral The source(s) of the original Home Medication information: patient The following Medications were given to the patient in the Emergency Department: IV NS IV Fluids bolus 250 mL over 15 minute(s), then 250 mL/hr, administered: 02/07/2017 2:35:00 PM Acetaminophen [PO] PO 1000 mg, administered: 02/07/2017 2:40:00 PM Potassium Chloride [PO] PO 20 meq, administered: 02/07/2017 3:40:00 PM Hydrocodone-APAP [PO] PO 1 tab, administered: 02/07/2017 6:10:00 PM Zofran [IVP] IVP 4 mg, administered: 02/07/2017 6:10:00 PM The following Medications were prescribed to the patient: Aspirin 325 mg (available over the counter): take 1 orally every 24 hours. Dispense thirty (30). No refills. -- Ricardo Beckford DO Meclizine 25 mg: Take 1 tablet orally every 8 hours as needed for dizziness. Dispense thirty (30). No refills. -- Ricardo Beckford DO
--- NOTE | 2017-02-07 20:33 | ED MED RECONCILIATION SUMMARY ---
Patient: ELIZABETH LEAL Medication Reconciliation Report [facility] VisitID: [id number] [address] [place] [address] 77y, M Registration Date/Time: 02/07/2017 Weight: 86.1 kg Height/Length: 72 in. BMI: 25.8 ALLERGIES: No Known Drug Allergy The patient's Home Medications are listed below: CONTINUE TAKING THE FOLLOWING MEDICATIONS: Aspirin Oral (81 mg) 1 tablet, daily Atenolol Oral uncerain, daily Atorvastatin Calcium Oral Losartan Potassium Oral Triamterene-HCTZ Oral The source(s) of the original Home Medication information: patient The following Medications were given to the patient in the Emergency Department: IV NS IV Fluids bolus 250 mL over 15 minute(s), then 250 mL/hr, administered: 02/07/2017 2:35:00 PM Acetaminophen [PO] PO 1000 mg, administered: 02/07/2017 2:40:00 PM Potassium Chloride [PO] PO 20 meq, administered: 02/07/2017 3:40:00 PM Hydrocodone-APAP [PO] PO 1 tab, administered: 02/07/2017 6:10:00 PM Zofran [IVP] IVP 4 mg, administered: 02/07/2017 6:10:00 PM The following Medications were prescribed to the patient: Aspirin 325 mg (available over the counter): take 1 orally every 24 hours. Dispense thirty (30). No refills. -- Ricardo Beckford DO Meclizine 25 mg: Take 1 tablet orally every 8 hours as needed for dizziness. Dispense thirty (30). No refills. -- Ricardo Beckford DO
--- NOTE | 2017-02-07 20:33 | ED MAR SUMMARY ---
..... Medication Administration Record [facility] [address] [place] [address] Patient: ELIZABETH LEAL Visit ID: [id number] 77y, M Weight: 86.1 kg Height/Length: 72 in BMI: 25.8 ALLERGIES: No Known Drug Allergy Start 14:35 02/07/2017 Edgar Turcios R.N., Stop 19:00 02/07/2017 Edgar Turcios R.N. Medication Administered: IV NS (SALINE), Dose: IV Fluids over 3 hour(s), Rate: 250 mL/hr, Bolus: 250 mL over 15 minute(s), Dispensed: 1000 mL bag, Site: #1 left AC. Medication Ordered: IV NS : initial bolus 250 mL (1000 mL/hr), then 250 mL/hr for X2 (NOW). Given 14:40 02/07/2017 Edgar Turcios R.N. Medication Administered: ACETAMINOPHEN [PO] (APAP), Dose: 1000 mg Tablets PO. Medication Ordered: Acetaminophen PO 1,000 mg (NOW). Given 15:40 02/07/2017 Edgar Turcios R.N. Medication Administered: POTASSIUM CHLORIDE [PO] (POTASSIUM CHLORIDE ER), Dose: 20 meq Tablets PO. Medication Ordered: Potassium Chloride PO 20 meq (NOW). Given 18:10 02/07/2017 Edgar Turcios R.N. Medication Administered: HYDROCODONE-APAP [PO] (HYDROCODONE-ACETAMINOPHEN), Dose: 1 tab 5/325 mg Tablets PO. Medication Ordered: Hydrocodone-APAP PO 5/325 mg (NOW, HIGH ALERT MEDICATION). Given 18:10 02/07/2017 Edgar Turcios R.N. Medication Administered: ZOFRAN [IVP] (ONDANSETRON HCL), Dose: 4 mg IVP over 2 minute(s), Site: #1 left AC. Medication Ordered: Zofran IV 4 mg (NOW).
== END 2017-02-07 19:15 | disposition home or self-care (01) ==
LOC: ED SRH 14:02
DX: R42 Dizziness and giddiness (principal); E87.6 Hypokalemia; E87.1 Hypo-osmolality and hyponatremia; R94.5 Abnormal results of liver function studies; S70.01XA Contusion of right hip, initial encounter; S00.83XA Contusion of other part of head, initial encounter; W18.30XA Fall on same level, unspecified, initial encounter; Y92.009 Unspecified place in unspecified non-institutional (private) residence as the place of occurrence of the external cause; Y93.9 Activity, unspecified; Y99.9 Unspecified external cause status